=== PATIENT | male | born 1965 | race Caucasian/White ===

== ENCOUNTER 2021-09-25 21:50 | Emergency (ER) | payer BC ==
[~2021-09-25] VITALS: Ht 170.2 cm; Wt 113.4 kg
--- NOTE | 2021-09-25 21:56 | NUR ---
Dr jackson at bedside, MSE in progress.
[2021-09-25] MEDS ORDERED: KETOROLAC TROMETHAMINE 60 MG INJ IM ONE (23:14)
[2021-09-25] MEDS ORDERED: ONDANSETRON HCL 4 MG TABLET ONE (23:14)
[2021-09-25] MEDS ORDERED: HYDROMORPHONE 1 MG/1 ML DISP.SYRIN ONE (23:15)
[2021-09-25] MEDS: HYDROMORPHONE 1 MG/1 ML DISP.SYRIN IM ONE (23:25)
[2021-09-25] MEDS: KETOROLAC TROMETHAMINE 60 MG INJ IM ONE (23:26)
[2021-09-25] MEDS: ONDANSETRON HCL 4 MG TABLET PO ONE (23:27)
--- NOTE | 2021-09-25 23:36 | NUR ---
pt returned from CT.
[2021-09-26] MEDS ORDERED: OXYC-128 PO (00:25)
--- NOTE | 2021-09-26 00:32 | NUR ---
Patient discharged to home in stable condition. Written and verbal after care instructions given. Patient verbalizes understanding of instructions. Stressed follow up or return to ER for worsening s/s. pt ambulated with cane. no SOB. no chest pain. AOx4.
[2021-09-26 00:41] VITALS: BP 113/79
== END 2021-09-26 00:42 | disposition home or self-care (01) ==
LOC: ER 21:50
DX: M54.42 Lumbago with sciatica, left side (principal); M47.896 Other spondylosis, lumbar region; M48.061 Spinal stenosis, lumbar region without neurogenic claudication
CPT/HCPCS: 72131; 96372 ×2; 99284; J1170; J1885; A4663; Q0162

== ENCOUNTER 2022-11-21 19:44 | Emergency (ER) | payer BC ==
[~2022-11-21] VITALS: Ht 172.7 cm; Wt 113.4 kg
[~2022-11-21 19:44] MED LIST: OXYC-128 PO
[2022-11-21 20:11] LABS: *BILIRUBIN,URIN NEGATIVE (NEGATIVE); *BLOOD, URINE NEGATIVE (NEGATIVE); *CLARITY,URINE CLEAR (CLEAR); *COLOR,URINE YELLOW (YELLOW); *KETONES,URINE NEGATIVE (NEGATIVE); *PROTEIN,URINE NEGATIVE (NEGATIVE); LEUKOCYTE ESTERASE ,URINE NEGATIVE (NEGATIVE); NITRITE, URINE POSITIVE (NEGATIVE); UGLUCOSE NEGATIVE (NEGATIVE)
[2022-11-21] MEDS ORDERED: PHENAZOPYRIDINE HCL 100 MG TABLET PO ONE (20:45)
[2022-11-21] MEDS ORDERED: NITROFURANTOIN/NITROFURAN MAC 100 MG CAPSULE PO ONE ×2 (20:45→20:51)
[2022-11-21] MEDS ORDERED: PHENAZOPYRIDINE HCL 100 MG TABLET ONE (20:51)
[2022-11-21] MEDS ORDERED: PHEN95TA26 PO (21:01)
[2022-11-21] MEDS ORDERED: NITR-84 PO (21:01)
[2022-11-21 21:26] VITALS: BP 131/61; O2SAT 97
[2022-11-21 21:46] LABS: BACTERIA,URINE FEW /HPF (NONE SEEN); RBC,URINE 0-3 /HPF (0-3); SQUAMOUS EPITHELIAL CELL,UR FEW /HPF (NONE SEEN); WBC,URINE NONE SEEN /HPF (0-3)
== END 2022-11-21 21:27 | disposition home or self-care (01) ==
LOC: ER 19:52
DX: R30.0 Dysuria (principal); Z79.899 Other long term (current) drug therapy
CPT/HCPCS: A4663